=== PATIENT | male | born 1990 | race Hispanic/Latino ===

== ENCOUNTER 2020-12-05 00:26 | Emergency (ER) | payer BC ==
[2020-12-05] MEDS ORDERED: dexAMETHasone 10 MG/ML VIAL ONE (01:42)
[2020-12-05] MEDS ORDERED: KETOROLAC 30 MG/ML INJ ONE (01:42)
--- NOTE | 2020-12-05 02:22 | ER ---
Nurse's Notes [facility] Name: Davonte Warren Age: 30 yrs Sex: Male : 1990 Arrival Date: 12/05/2020 Time: 00:28 Bed 30 Private MD: Diagnosis: Calcific tendinitis of right shoulder Presentation: 12/05 00:53 Chief complaint: Patient states: C/o rt shoulder pain that radiates down to hand, sj1 started yesterday, Denies injury. Coronavirus screen: Vaccine status: Patient reports being unvaccinated. Ebola Screen: No symptoms or risks identified at this time. Initial Sepsis Screen: Does the patient meet any 2 criteria? No. Patient's initial sepsis screen is negative. Does the patient have a suspected source of infection? No. Patient's initial sepsis screen is negative. Risk Assessment: Do you want to hurt yourself or someone else? Patient reports no desire to harm self or others. Onset of symptoms was December 04, 2020. 00:53 Method Of Arrival: Ambulatory sj1 00:53 Acuity: JEREMÍAS 4 sj1 Triage Assessment: 00:55 General: Appears in no apparent distress. Behavior is calm, cooperative, appropriate sj1 for age. Pain: Complains of pain in shoulder pain Pain radiates to rt hand Pain currently is 7 out of 10 on a pain scale. at worst was 10 out of 10 on a pain scale. level that patient reports is acceptable is 0 out of 10 on a pain scale. Quality of pain is described as sharp, pulsating, Pain began 1 day ago. Is continuous. Musculoskeletal: Reports pain in rt shoulder. Historical: - Allergies: 00:55 No Known Allergies; sj1 - Home Meds: 00:55 None [Active]; sj1 - PMHx: 00:55 None; sj1 - PSHx: 00:55 left arm; back surgery; sj1 - Immunization history:: Adult Immunizations up to date. - Social history:: Smoking status: Patient denies any tobacco usage or history of. Patient uses alcohol, occasionally. Patient/guardian denies using street drugs. Screenin:57 Abuse screen: Denies threats or abuse. Denies injuries from another. Nutritional sj1 screening: No deficits noted. Tuberculosis screening: No symptoms or risk factors identified. Fall Risk None identified. Assessment: 01:00 General: Appears in no apparent distress. Behavior is calm, cooperative, talkative. dc2 01:00 Pain: Complains of pain in Right shoulder. Pain: Complains of pain in right shoulder dc2 since yesterday, denies trauma. Neuro: No deficits noted. Level of Consciousness is awake, alert, obeys commands, Oriented to person, place, time, situation. Cardiovascular: No deficits noted. Denies chest pain, shortness of breath. Respiratory: No deficits noted. Airway is patent Breath sounds are clear bilaterally. GI: No deficits noted. No signs and/or symptoms were reported involving the gastrointestinal system. : No deficits noted. No signs and/or symptoms were reported regarding the genitourinary system. EENT: No deficits noted. No signs and/or symptoms were reported regarding the EENT system. Derm: No deficits noted. No signs and/or symptoms reported regarding the dermatologic system. Musculoskeletal: Capillary refill < 3 seconds, fingers. Range of motion: limited in Right arm and shoulder due to pain. No deformity noted. 01:18 General: Medicated as ordered for pain; (see orders). cc4 01:25 General: Portable xray completed right shoulder. cc4 02:30 Reassessment: Pt leave ED with steady ambulatory gait , shoulder sling in place. In nad.dc2 Vital Signs: 00:53 BP 142 / 93; Pulse 75; Resp 18 S; Temp 98.3; Pulse Ox 99% on R/A; Weight 92.99 kg (R); sj1 Height 5 ft. 10 in. (177.80 cm); Pain 7/10; 02:15 BP 119 / 75; Pulse 64; Resp 16; Temp 97.9(O); Pulse Ox 100% ; Pain 2/10; dc2 00:53 Body Mass Index 29.41 (92.99 kg, 177.80 cm) sj1 ED Course: 00:28 Patient arrived in ED. bp1 00:55 Triage completed. sj1 00:55 Arm band placed on left wrist. sj1 00:56 Patient has correct armband on for positive identification. Bed in low position. Call sj1 light in reach. Side rails up X 1. 01:01 Charles Garcia PA is PHCP. rachel 01:01 Rodney García MD is Attending Physician. jmm 01:14 Nallely Khanna, RN is Primary Nurse. dc2 01:15 Shoulder Right (2 View) XRAY Sent. cc4 02:21 Mahad Bacon MD is Referral Physician. [facility] 02:25 No provider procedures requiring assistance completed. dc2 02:25 Patient did not have IV access during this emergency room visit. dc2 Administered Medications: 01:18 Drug: Ketorolac 30 mg Route: IM; Site: left gluteus; cc4 02:00 Follow up: Response: Pain is decreased dc2 01:20 Drug: Decadron (dexamethasone) 10 mg Route: IM; Site: right gluteus; cc4 02:00 Follow up: Response: No adverse reaction dc2 Outcome: 02:22 Discharge ordered by . [facility] 02:30 Discharged to home ambulatory. dc2 02:30 Condition: stable 02:30 Discharge instructions given to patient, Instructed on discharge instructions, follow up and referral plans. Demonstrated understanding of instructions, follow-up care, medications, Prescriptions given X 2. 03:15 Patient left the ED. dc2 Signatures: Charles Garcia PA PA jmm [place], [facility] Chantal Edward, RN RN cc4 Nallely Khanna, RN RN dc2 Stacey Reeves RN RN sj1
--- NOTE | 2020-12-05 02:22 | EDPHYS ---
Physician Documentation [facility] Name: Davonte Warren Age: 30 yrs Sex: Male : 1990 Arrival Date: 12/05/2020 Time: 00:28 Bed 30 Private MD: ED Physician Rodney García HPI: 12/05 02:19 This 30 yrs old Male presents to ER via Ambulatory with complaints of Shoulder jmm Pain. 02:19 The patient or guardian complains of pain. Onset: The symptoms/episode began/occurred jmm gradually, 5 day(s) ago. Modifying factors: the symptoms are alleviated by nothing. The symptoms are aggravated by movement. Associated signs and symptoms: Pertinent negatives: shortness of breath. This is a 30 year old male with no chronic medical conditions that presents to the ED with complaints of right shoulder pain, denies trauma. Historical: - Allergies: 00:55 No Known Allergies; sj1 - Home Meds: 00:55 None [Active]; sj1 - PMHx: 00:55 None; sj1 - PSHx: 00:55 left arm; back surgery; sj1 - Immunization history:: Adult Immunizations up to date. - Social history:: Smoking status: Patient denies any tobacco usage or history of. Patient uses alcohol, occasionally. Patient/guardian denies using street drugs. ROS: 02:20 Constitutional: Negative for fever, chills, and weight loss, Cardiovascular: Negative jmm for chest pain, palpitations, and edema, Respiratory: Negative for shortness of breath, cough, wheezing, and pleuritic chest pain. 02:20 MS/extremity: Positive for pain. 02:20 All other systems are negative. Exam: 02:20 Constitutional: This is a well developed, well nourished patient who is awake, alert, jmm and in no acute distress. Head/Face: atraumatic. Eyes: EOMI, no conjunctival erythema appreciated ENT: Moist Mucus Membranes Neck: Trachea midline, Supple Chest/axilla: Normal chest wall appearance and motion. Cardiovascular: Regular rate and rhythm. No edema appreciated Respiratory: Normal respirations, no respiratory distress appreciated Abdomen/GI: Non distended, soft Back: Normal ROM Skin: General appearance color normal 02:20 Neuro: Awake and alert, normal gait Psych: Behavior is normal, Mood is normal, Patient is cooperative and pleasant 02:20 Musculoskeletal/extremity: ROM: Painful abduction, right lateral shoulder tender to palpation, full onsite health coach strength, neurovascular intact. Vital Signs: 00:53 BP 142 / 93; Pulse 75; Resp 18 S; Temp 98.3; Pulse Ox 99% on R/A; Weight 92.99 kg (R); sj1 Height 5 ft. 10 in. (177.80 cm); Pain 7/10; 02:15 BP 119 / 75; Pulse 64; Resp 16; Temp 97.9(O); Pulse Ox 100% ; Pain 2/10; dc2 00:53 Body Mass Index 29.41 (92.99 kg, 177.80 cm) sj1 MDM: 01:02 Patient medically screened. dayanna 02:21 Data reviewed: vital signs, nurses notes. Counseling: I had a detailed discussion with rachel the patient and/or guardian regarding: the historical points, exam findings, and any diagnostic results supporting the discharge/admit diagnosis, radiology results, the need for outpatient follow up, to return to the emergency department if symptoms worsen or persist or if there are any questions or concerns that arise at home. 12/05 01:07 Order name: Shoulder Right (2 View) XRAY [facility] 12/05 02:12 Order name: Sling; Complete Time: 02:30 [facility] Administered Medications: 01:18 Drug: Ketorolac 30 mg Route: IM; Site: left gluteus; cc4 02:00 Follow up: Response: Pain is decreased dc2 01:20 Drug: Decadron (dexamethasone) 10 mg Route: IM; Site: right gluteus; cc4 02:00 Follow up: Response: No adverse reaction dc2 Disposition: 08:04 Co-signature as Attending Physician, Rodney García MD I agree with the assessment and [facility] plan of care. Disposition Summary: 12/05/20 02:22 Discharge Ordered Location: Home [facility] Condition: Stable [facility] Diagnosis - Calcific tendinitis of right shoulder [facility] Followup: [facility] - With: Mahad Bacon MD - When: 2 - 3 days - Reason: Recheck today's complaints, Continuance of care, Re-evaluation by your physician Discharge Instructions: - Discharge Summary Sheet [facility] - Rotator Cuff Tendinitis [facility] - Calcific Tendinitis [facility] Forms: - Medication Reconciliation Form [facility] - Thank You Letter [facility] - Antibiotic Education [facility] - Prescription Opioid Use [facility] Prescriptions: - Ibuprofen 800 mg Oral Tablet - take 1 tablet by ORAL route every 8 hours As needed take with food; 30 tablet; [facility] Refills: 0, Product Selection Permitted - orphenadrine citrate 100 mg Oral Tablet Sustained Release - take 1 tablet by ORAL route 2 times per day As needed; 20 tablet; Refills: 0, [facility] Product Selection Permitted Signatures: Dispatcher [employer] EDLA Rodney García MD MD cha Mickail, Joel, PA PA [facility] Chantal Edward, RN RN cc4 Stacey Reeves RN RN sj1 ClemenciaNallely RN dc2 Corrections: (The following items were deleted from the chart) 02:20 02:19 This is a 30 year old male with no chronic medical conditions that presents to [facility] the ED with complaints . [facility]
[2020-12-05 05:27] VITALS: BP 119/75; TEMP 97.9; O2SAT 100
--- NOTE | 2020-12-05 07:09 | RAD REPORT ---
EXAM DESCRIPTION: RAD - Shoulder Right 2 View - 12/05/2020 5:46 am CLINICAL HISTORY: PAIN COMPARISON: No comparisons FINDINGS: No acute fracture. No malalignment. Ossific densities at the greater tuberosity are noted. IMPRESSION: No acute osseous abnormality involving the right shoulder. Ossific densities at the grea ter tuberosity could represent calcific tendinitis.
== END 2020-12-05 03:15 | disposition home or self-care (01) ==
LOC: ER 00:26
DX: M75.31 Calcific tendinitis of right shoulder (principal)
CPT/HCPCS: 73030; 96372; 99283; J1100